=== PATIENT | male | born 1945 | race Caucasian/White ===

== ENCOUNTER → 2021-11-24 | Outpatient (CLI) | payer MEDICARE | END | disposition home or self-care (01) | LOC: RAD 13:01 | PROVIDERS: ATTEND Orthopaedic Surgery | DX: M19.012 Primary osteoarthritis, left shoulder (principal); M25.511 Pain in right shoulder ==

== ENCOUNTER → 2024-11-21 | Day surgery (SDC) | payer MEDICARE ==
[2024-11-15 11:10] LABS: BUN 27 mg/dl (9-23); CHLORIDE 106 mmol/L (98-107); POTASSIUM 4.5 mmol/L (3.4-5.1)
[~2024-11-21] VITALS: Ht 182.8 cm; Wt 108.9 kg
[~2024-11-21] MED LIST: ACETAMINOPHEN 100 ML IV ONE; ALDACTONE25 M1 PO; AMLODIPINE BESYL5 MG PO; ASPIRIN81 M1 PO; BUPivacaine 0.5% 10 ML VIAL ONE; FISH OIL 1,2001 EACH PO; GLUCOSAMINE &1 EACH PO; HYDR25T PO; LIPITOR40 MG PO; LOSARTAN POTAS100 M1 PO; Lactated Ringer's Solution 1,000 ML IV ONE; Lidocaine Hydrochloride 2% 5 ML SDV IM ONE; Lidocaine Hydrochloride 30 ML VIAL ONE; METOPROLOL25 MG PO; MULTIVITAMINS1 EAC6 PO; PLAVIX75 M1 PO; PROPOFOL 200 MG/20 ML VIAL IV ONE; VITAMIN D350 MCG PO; ZOLOFT50 MG PO; ceFAZolin sodium/sodium chlor 20 ML IV ONE
[2024-11-21 08:52] VITALS: BP 108/64
[2024-11-21 09:07] VITALS: BP 112/56
[2024-11-21 09:22] VITALS: BP 112/63
== END | disposition home or self-care (01) ==
LOC: SDC 11-18 11:00
PROVIDERS: ATTEND Orthopaedic Surgery
DX: G56.03 Carpal tunnel syndrome, bilateral upper limbs (principal); I10 Essential (primary) hypertension; E78.00 Pure hypercholesterolemia, unspecified; Z87.891 Personal history of nicotine dependence; Z79.82 Long term (current) use of aspirin; Z79.899 Other long term (current) drug therapy; Z98.890 Other specified postprocedural states; Z82.49 Family history of ischemic heart disease and other diseases of the circulatory system